=== PATIENT | female | born 1990 | race Caucasian/White ===

== ENCOUNTER 2017-06-21 00:58 | Inpatient (IN) ==
[2017-06-21] MEDS ORDERED: BUTORPHANOL 2 MG/ML VIAL IV PRN (01:16)
[2017-06-21] MEDS ORDERED: MEPERIDINE 50 MG/1 ML VIAL IV PRN (01:16)
[2017-06-21] MEDS: LACTATED RINGERS 1,000 ML IV SCH ×3 (01:25→07:50)
[2017-06-21 01:31] LABS: Basophils % 0.2 % (0.0-0.8); Eosinophils % 0.3 % (0.00-10.9); Hematocrit 33.4 VOL% (35.7-47.0); Hemoglobin 11.7 GM/DL (12.0-16.0); Immature Granulocytes % 1.3 %; Immature Granulocytes Absolute 0.16 #; Lymphocytes # 1.7 10*3/uL (1.4-4.0); Lymphocytes % 13.9 % (21.3-54.2); Mean Corpuscular Hemoglobin 30 PG (27-34); Mean Corpuscular Volume 84.6 FL (87-102); Mean Platelet Volume 10.2 FL (9.6-12.0); Monocytes # 0.7 10*3/uL (0.11-0.8); Monocytes % 6.1 % (1.7-12.7); Neutrophils # 9.4 10*3/uL (1.4-7.4); Neutrophils % 78.2 % (38.7-73.9); Platelet Count 156 T/CUMM (130-400); Red Blood Count 3.95 MC/CUMM (3.8-5.5); Red Cell Distribution Width 13.3 % (9.3-17.3); White Blood Count 12.1 T/CUMM (4-12)
[2017-06-21] MEDS ORDERED: FAMOTIDINE 20 MG/2 ML VIAL IV ONE (01:31)
[2017-06-21] MEDS ORDERED: CITRIC ACID/SODIUM CITRATE 30 ML UDCUP PO ONE (01:31)
[2017-06-21] MEDS ORDERED: ePHEDrine 50 MG/ML AMP IV PRN (01:31)
[2017-06-21 01:41] LABS: Apearance,Urine Slightly Hazy (Clear); Bacteria,Urine Occasional /HPF (Few); Bilirubin,Urine Negative (Negative); Blood, Urine Negative (Negative); Glucose,Urine (UA) Negative (Negative); Hyaline Casts,Urine 1 /LPF (0-3); Ketones,Urine Negative (Negative); Mucus,Urine Occasional /LPF (Occasional); Nitrite,Urine Negative (Negative); Protein,Urine Negative; RBC,Urine 1 /HPF (0-4); Squamous Epithelial Cell,Urine Occasional /HPF (0-10); Urine Color Yellow (Yellow); Urine Specific Gravity 1.013 (1.001-1.035); Urine Urobilinogen < 2.0 EU/DL (0.2-1.0); WBC,Urine 2 /HPF (0-6)
[2017-06-21] MEDS ORDERED: fentaNYL 2 MCG/ROPIV 0.2% EPID 150 ML EPIDURAL SCH (02:30)
[2017-06-21] MEDS: ONDANSETRON 4 MG/2 ML VIAL IV PRN ×2 (05:13→14:20)
[2017-06-21 05:14] LABS: Apearance,Urine CLEAR (Clear); Bilirubin,Urine Negative (Negative); Blood, Urine Negative (Negative); Glucose,Urine (UA) Negative (Negative); Ketones,Urine 20 mg/dL (Negative); Mucus,Urine Occasional /LPF (Occasional); Nitrite,Urine Negative (Negative); Protein,Urine Negative; RBC,Urine 1 /HPF (0-4); Squamous Epithelial Cell,Urine Occasional /HPF (0-10); Urine Color Yellow (Yellow); Urine Specific Gravity 1.012 (1.001-1.035); Urine Urobilinogen < 2.0 EU/DL (0.2-1.0); WBC,Urine 1 /HPF (0-6)
[2017-06-21] MEDS ORDERED: OXYTOCIN/LR 20 UNIT/1,000 ML BAG IV SCH (09:00)
[2017-06-21] MEDS ORDERED: LIDOCAINE 1% 50 ML VIAL ONE (15:36)
[2017-06-21] MEDS ORDERED: HYDROCORTISONE 2.5% RECTAL CREAM 30 GM TUBE TOP PRN (15:54)
[2017-06-21] MEDS ORDERED: WITCH HAZEL PADS 100/JAR TOP PRN (15:54)
[2017-06-21] MEDS ORDERED: BENZOCAINE 20%/MENTHOL 0.5% SPRAY 56 GM CAN TOP PRN (15:54)
[2017-06-21] MEDS ORDERED: OXYTOCIN/LR 20 UNIT/1,000 ML BAG IV ONE (15:54)
[2017-06-21] MEDS ORDERED: ONDANSETRON 4 MG/2 ML VIAL IV PRN (15:54)
[2017-06-21] MEDS ORDERED: LANOLIN 50% CREAM 0.3 OZ TUBE TOP PRN (15:54)
[2017-06-21] MEDS ORDERED: ACETAMINOPHEN 325 MG TABLET PO PRN (15:54)
[2017-06-21] MEDS ORDERED: BISACODYL 10 MG SUPP RECTAL PRN (15:54)
[2017-06-21] MEDS ORDERED: oxyCODONE/ACETAMINOPHEN 5-325 MG TABLET PO PRN ×2 (15:54)
[2017-06-21] MEDS ORDERED: MEASLES/MUMPS/RUBELLA VACCINE 0.5 ML VIAL SUBCUT ONE (16:15)
[2017-06-21] MEDS ORDERED: DIPH/TET/ACEL PERT BOOSTER VACCINE 0.5 ML VIAL IM ONE (16:15)
[2017-06-21] MEDS ORDERED: RHO(D) IMMUNE GLOBULIN 300 MCG SYRINGE IM ONE (16:30)
[2017-06-21] MEDS: IBUPROFEN 800 MG TABLET PO PRN ×2 (17:32→23:24)
[2017-06-21] MEDS: DOCUSATE SODIUM 100 MG CAPSULE PO SCH (21:34)
[2017-06-22] MEDS: IBUPROFEN 800 MG TABLET PO PRN ×2 (05:15→19:55)
[2017-06-22 06:58] LABS: Basophils % 0.3 % (0.0-0.8); Eosinophils # 0.1 10*3/uL (0.0-0.87); Eosinophils % 0.7 % (0.00-10.9); Hematocrit 26.9 VOL% (35.7-47.0); Hemoglobin 9.2 GM/DL (12.0-16.0); Immature Granulocytes % 1.6 %; Immature Granulocytes Absolute 0.26 #; Lymphocytes # 1.8 10*3/uL (1.4-4.0); Lymphocytes % 11.2 % (21.3-54.2); Mean Corpuscular HGB Conc 34.2 GM/DL (32-36); Mean Corpuscular Hemoglobin 29 PG (27-34); Mean Corpuscular Volume 85.1 FL (87-102); Mean Platelet Volume 10.5 FL (9.6-12.0); Monocytes # 0.9 10*3/uL (0.11-0.8); Monocytes % 5.9 % (1.7-12.7); Neutrophils # 12.7 10*3/uL (1.4-7.4); Neutrophils % 80.3 % (38.7-73.9); Platelet Count 128 T/CUMM (130-400); Red Blood Count 3.16 MC/CUMM (3.8-5.5); Red Cell Distribution Width 13.5 % (9.3-17.3); White Blood Count 15.8 T/CUMM (4-12)
[2017-06-22 07:21] LABS: Band Neutrophils 2 % (0-10); Hypochromasia 1+; Lymphocytes 13 % (20-55); Microcytosis 1+; Platelet Estimate Adequate; Segmented Neutrophils 82 % (50-85); Total Cells Counted 100
[2017-06-22] MEDS ORDERED: ACETAMINOPHEN/CODEINE 300-30 MG TABLET PO PRN (08:09)
[2017-06-22] MEDS: DOCUSATE SODIUM 100 MG CAPSULE PO SCH ×2 (08:35→21:29)
[2017-06-22] MEDS: ACETAMINOPHEN/CODEINE 300-30 MG TABLET PO PRN ×3 (08:35→19:53)
[2017-06-22] MEDS: FERROUS SULFATE 325 MG TABLET PO SCH (21:28)
[2017-06-23] MEDS: ACETAMINOPHEN/CODEINE 300-30 MG TABLET PO PRN (06:18)
[2017-06-23 07:35] VITALS: BP 121/74
[2017-06-23] MEDS: FERROUS SULFATE 325 MG TABLET PO SCH (09:38)
[2017-06-23] MEDS: DOCUSATE SODIUM 100 MG CAPSULE PO SCH (09:38)
== END 2017-06-23 13:05 | disposition home or self-care (01) | DRG 775 ==
LOC: EDBD → N.LDOUT 00:58 → N.LD 01:03 → N.OB 19:20
PROVIDERS: ADMIT Obstetrics & Gynecology; ATTEND Obstetrics & Gynecology